=== PATIENT | female | born 1995 | race Two or more races ===

== ENCOUNTER 2018-10-09 10:11 | Emergency (ER) | payer BC ==
[~2018-10-09] VITALS: Ht 154.9 cm; Wt 63.5 kg
--- NOTE | 2018-10-09 10:33 | PHYS DOC ---
Adult General Chief Complaint Chief Complaint: VAGINAL BLEEDING HPI HPI Patient is a 23 year old female who presents with several weeks with the last period being in August 21. Patient states she does have an OB appointment with the [facility] centers on October 25. Patient states yesterday and today she had some spotting but only noticed with wiping knot in her underwear. Patient states she has no pain. 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 Patient denies any vaginal discharge or sexual transmitted disease concerns. Review of Systems Review of Systems Constitutional: Denies fever or chills [] Eyes: Denies change in visual acuity, redness, or eye pain [] HENT: Denies nasal congestion or sore throat [] Respiratory: Denies cough or shortness of breath [] Cardiovascular: No additional information not addressed in HPI [] GI: Denies abdominal pain, nausea, vomiting, bloody stools or diarrhea [] : Vaginal bleeding. Denies dysuria or hematuria [] Musculoskeletal: Denies back pain or joint pain [] Integument: Denies rash or skin lesions [] Neurologic: Denies headache, focal weakness or sensory changes [] Endocrine: Denies polyuria or polydipsia [] All other systems were reviewed and found to be within normal limits, except as documented in this note. Allergies Allergies Allergies Coded Allergies Type Severity Reaction Last Updated Verified No Known Drug Allergies 10/09/18 No Physical Exam Physical Exam Constitutional: Well developed, well nourished, no acute distress, non-toxic appearance. [] HENT: Normocephalic, atraumatic, bilateral external ears normal, oropharynx moist, no oral exudates, nose normal. [] Eyes: PERRLA, EOMI, conjunctiva normal, no discharge. [] Neck: Normal range of motion, no tenderness, supple, no stridor. [] Cardiovascular:Heart rate regular rhythm, no murmur [] Lungs & Thorax: Bilateral breath sounds clear to auscultation [] Abdomen: Bowel sounds normal, soft, no tenderness, no masses, no pulsatile masses. [] Skin: Warm, dry, no erythema, no rash. [] Back: No tenderness, no CVA tenderness. [] Extremities: No tenderness, no cyanosis, no clubbing, ROM intact, no edema. [] Neurologic: Alert and oriented X 3, normal motor function, normal sensory function, no focal deficits noted. [] Psychologic: Affect normal, judgement normal, mood normal. Normal physical exam.[] Current Patient Data Vital Signs Vital Signs Date Time Temp Pulse Resp B/P (MAP) Pulse Ox O2 Delivery O2 Flow Rate FiO2 10/09/18 11:58 80 16 115/57 (76) 100 Room Air 10/09/18 10:25 98.6 98.6 Lab Values Laboratory Tests Test 10/09/18 10:17 10/09/18 10:23 10/09/18 11:40 Urine Collection Type Unknown Urine Color Yellow Urine Clarity Clear Urine pH 8.0 Urine Specific [place] 1.020 Urine Protein Negative mg/dL (NEG-TRACE) Urine Glucose (UA) Negative mg/dL (NEG) Urine Ketones (Stick) Negative mg/dL (NEG) Urine Blood Negative (NEG) Urine Nitrite Negative (NEG) Urine Bilirubin Negative (NEG) Urine Urobilinogen Dipstick 1.0 mg/dL (0.2 mg/dL) Urine Leukocyte Esterase Negative (NEG) Urine RBC 3-5 /HPF (0-2) Urine WBC 1-4 /HPF (0-4) Urine Squamous Epithelial Cells Mod /LPF Urine Bacteria Few /HPF (0-FEW) Urine Mucus Mod /LPF Urine Opiates Screen Neg (NEG) Urine Methadone Screen Neg (NEG) Urine Barbiturates Neg (NEG) Urine Phencyclidine Screen Neg (NEG) Urine Amphetamine/Methamphetamine Neg (NEG) Urine Benzodiazepines Screen Neg (NEG) Urine Cocaine Screen Neg (NEG) Urine Cannabinoids Screen Neg (NEG) Urine Ethyl Alcohol Neg (NEG) POC Urine HCG, Qualitative Hcg positive (Negative) White Blood Count 6.6 x10^3/uL (4.0-11.0) Red Blood Count 4.39 x10^6/uL (3.50-5.40) Hemoglobin 14.0 g/dL (12.0-15.5) Hematocrit 41.2 % (36.0-47.0) Mean Corpuscular Volume 94 fL (79-100) Mean Corpuscular Hemoglobin 32 pg (25-35) Mean Corpuscular Hemoglobin Concent 34 g/dL (31-37) Red Cell Distribution Width 12.2 % (11.5-14.5) Platelet Count 312 x10^3/uL (140-400) Neutrophils (%) (Auto) 68 % (31-73) Lymphocytes (%) (Auto) 22 % (24-48) L Monocytes (%) (Auto) 6 % (0-9) Eosinophils (%) (Auto) 3 % (0-3) Basophils (%) (Auto) 1 % (0-3) Neutrophils # (Auto) 4.5 x10^3/uL (1.8-7.7) Lymphocytes # (Auto) 1.4 x10^3/uL (1.0-4.8) Monocytes # (Auto) 0.4 x10^3/uL (0.0-1.1) Eosinophils # (Auto) 0.2 x10^3/uL (0.0-0.7) Basophils # (Auto) 0.1 x10^3/uL (0.0-0.2) Maternal Serum HCG Beta Subunit 432 mIU/mL (0-5) H Sodium Level 139 mmol/L (136-145) Potassium Level 4.2 mmol/L (3.5-5.1) Chloride Level 101 mmol/L (98-107) Carbon Dioxide Level 26 mmol/L (21-32) Anion Gap 12 (6-14) Blood Urea Nitrogen 6 mg/dL (7-20) L Creatinine 0.7 mg/dL (0.6-1.0) Estimated GFR (Cockcroft-Gault) 102.8 BUN/Creatinine Ratio 9 (6-20) Glucose Level 87 mg/dL (70-99) Calcium Level 9.3 mg/dL (8.5-10.1) Total Bilirubin 0.5 mg/dL (0.2-1.0) Aspartate Amino Transferase (AST) 12 U/L (15-37) L Alanine Aminotransferase (ALT) 10 U/L (14-59) L Alkaline Phosphatase 64 U/L (46-116) Total Protein 7.8 g/dL (6.4-8.2) Albumin 4.3 g/dL (3.4-5.0) Albumin/Globulin Ratio 1.2 (1.0-1.7) Laboratory Tests 10/09/18 11:40 Laboratory Tests 10/09/18 11:40 Microbiology 10/09/18 Wet Prep - Final, Complete EKG EKG [] Radiology/Procedures Radiology/Procedures [] Impressions: [facility] [address] [place] [address] IMAGING REPORT Signed PATIENT: BURKE BUCIOACCOUNT: [id number] : 1995 LOCATION: ER AGE: 23 SEX: F EXAM STATUS: REG ER ORD. PHYSICIAN: LEIGHA VEGA APRN REASON: VAGINAL BLEEDING, 7wks preg, WAITING ON HCG PROCEDURE: OB <14 WKS W/TV OB <14 WKS W/TV History: Vaginal bleeding, Comparison: None. Findings: Multiple transabdominal sonographic images of the pelvis are submitted. Uterus measured 9.4 x 3.3 x 5.9 cm. Right ovary is visualized with normal low resistance vascularity color flow, left ovary not seen. There is trace free fluid in the posterior cul-de-sac. Transvaginal ultrasound: Multiple transvaginal sonographic images of the pelvis are submitted. Left ovary measured 2.8 x 1.7 x 2.5 cm with normal low resistance vascularity, a few follicles present near the periphery. Right ovary measured 4.3 x 2.9 x 2.5 cm. There is a focus of different echogenicity which is partially hypoechoic of the right ovary up to 1.7 x 1.8 by 1.9 cm in size. There is normal low resistance vascularity and color flow of the right ovary. Uterus measured 7.2 x 3.9 cm. Endometrium is thickened about 2 cm, no discrete intrauterine gestational sac identified. There is mild nonspecific complex appearing free fluid in the cul-de-sac, also some free fluid extending about the adnexal regions bilaterally. Impression: 1. No intrauterine gestational sac is demonstrated at this time, thickening of the endometrium. There is mild nonspecific complex appearing free fluid in the posterior cul-de-sac and also extending about the adnexal regions bilaterally. There is a focus of different echogenicity of the right ovary although this may be a corpus luteal cyst. Ectopic is not excluded at this point in time for which correlation with serial quantitative beta hCG values and short-term imaging follow-up if needed recommended. Electronically signed by: Jarrod Voss MD (10/09/2018 12:30 PM) [facility] DICTATED and SIGNED BY: JARROD VOSS MD DATE: 10/09/18 1230 Course & Med Decision Making Course & Med Decision Making Patient is a 23 year old female who presents with several weeks with the last period being in August 21. Patient states she does have an OB appointment with the [facility] on October 25. Patient states yesterday and today she had some spotting but only noticed with wiping knot in her underwear. Patient states she has no pain. 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 Patient denies any vaginal discharge or sexual transmitted disease concerns. Alert and oriented. Ambulatory with a stable gait. Abdomen is soft and nontender. Lungs are clear to auscultation lobes. Afebrile. Vital signs are within normal limits. No extremity edema. Denies recent illness, abdominal pain, vomiting, diarrhea, dizziness, chest pain, shortness of air. Ultrasound does not demonstrate a gestational sac at this time. Patient will get another ultrasound when she goes to the doctor on October 25 as planned. Patient has no abdominal pain. Urinalysis does not show infection. Bloodwork unremarkable. Patient is B+. Patient to follow-up at her scheduled OB appointment. Wet prep shows clue cells. Patient refusing any prophylactic treatment for sexually transmitted diseases at this time. Patient is told that the results to come back in 48 hours and if they are positive for chlamydia or gonorrhea she will be called. Pelvic Exam: [employer] present Abdomen: Nontender External Genitalia: Normal Skin Speculum: Normal vaginal mucosa, bloody cervical discharge, cervical os closed Bimanual: No adnexal masses or tenderness, No CMT Dragon Disclaimer Dragon Disclaimer This electronic medical record was generated, in whole or in part, using a voice recognition dictation system. Departure Departure Impression: Primary Impression: Vaginal bleeding affecting early Disposition: 01 HOME, SELF-CARE Condition: STABLE Patient Instructions: Vaginal Bleeding During , First Trimester Additional Instructions: Follow-up with OB as scheduled. Drink plenty of fluids. Take Tylenol for any kind of pain. Scripts Metronidazole (METRONIDAZOLE) 500 Mg Tablet 1 TAB PO BID, #14 TAB Prov: LEIGHA VEGA APRN 10/09/18 LEIGHA VEGA APRN Oct 09, 2018 10:33
[2018-10-09 10:57] LABS: BILIRUBIN,URINE NEGATIVE (NEG); CLARITY,URINE CLEAR; COLOR,URINE YELLOW; NITRITE,URINE NEGATIVE (NEG); PROTEIN,URINE NEGATIVE (NEG-TRACE)
[2018-10-09 11:04] LABS: BARBITURATES NEG (NEG); BENZODIAZEPINES NEG (NEG); CANNABINOIDS NEG (NEG); COCAINE NEG (NEG); METHADONE NEG (NEG); OPIATES NEG (NEG); PHENCYCLIDINE NEG (NEG)
[2018-10-09 11:05] LABS: AMPHETAMINE/METHAMPHETAMINE NEG (NEG); SQUAMOUS EPITHELIAL CELL,UR MOD /LPF
[2018-10-09 11:06] LABS: BACTERIA,URINE FEW /HPF (0-FEW)
[2018-10-09 11:52] LABS: BASO # 0.1 x10^3/uL (0.0-0.2); BASO % 1 % (0-3); EOS # 0.2 x10^3/uL (0.0-0.7); EOS % 3 % (0-3); HEMATOCRIT 41.2 % (36.0-47.0); LYMPH # 1.4 x10^3/uL (1.0-4.8); LYMPH % 22 % (24-48); MEAN CORPUSCULAR HEMOGLOBIN 32 pg (25-35); MEAN CORPUSCULAR HGB CONC 34 g/dL (31-37); MEAN CORPUSCULAR VOLUME 94 fL (79-100); MONO # 0.4 x10^3/uL (0.0-1.1); MONO % 6 % (0-9); NEUT # 4.5 x10^3/uL (1.8-7.7); NEUT % 68 % (31-73); PLATELET COUNT 312 x10^3/uL (140-400); RED BLOOD COUNT 4.39 x10^6/uL (3.50-5.40); RED CELL DISTRIBUTION WIDTH 12.2 % (11.5-14.5); WHITE BLOOD COUNT 6.6 x10^3/uL (4.0-11.0)
[2018-10-09 12:00] LABS: CALCIUM 9.3 mg/dL (8.5-10.1); CREATININE 0.7 mg/dL (0.6-1.0); GFR 102.8; POTASSIUM 4.2 mmol/L (3.5-5.1)
[2018-10-09 12:06] LABS: ALBUMIN 4.3 g/dL (3.4-5.0); ALBUMIN/GLOBULIN RATIO 1.2 (1.0-1.7); TOTAL BILIRUBIN 0.5 mg/dL (0.2-1.0); TOTAL PROTEIN 7.8 g/dL (6.4-8.2)
--- NOTE | 2018-10-09 12:33 | RAD ---
OB <14 WKS W/TV History: Vaginal bleeding, Comparison: None. Findings: Multiple transabdominal sonographic images of the pelvis are submitted. Uterus measured 9.4 x 3.3 x 5.9 cm. Right ovary is visualized with normal low resistance vascularity color flow, left ovary not seen. There is trace free fluid in the posterior cul-de-sac. Transvaginal ultrasound: Multiple transvaginal sonographic images of the pelvis are submitted. Left ovary measured 2.8 x 1.7 x 2.5 cm with normal low resistance vascularity, a few follicles present near the periphery. Right ovary measured 4.3 x 2.9 x 2.5 cm. There is a focus of different echogenicity which is partially hypoechoic of the right ovary up to 1.7 x 1.8 by 1.9 cm in size. There is normal low resistance vascularity and color flow of the right ovary. Uterus measured 7.2 x 3.9 cm. Endometrium is thickened about 2 cm, no discrete intrauterine gestational sac identified. There is mild nonspecific complex appearing free fluid in the cul-de-sac, also some free fluid extending about the adnexal regions bilaterally. Impression: 1. No intrauterine gestational sac is demonstrated at this time, thickening of the endometrium. There is mild nonspecific complex appearing free fluid in the posterior cul-de-sac and also extending about the adnexal regions bilaterally. There is a focus of different echogenicity of the right ovary although this may be a corpus luteal cyst. Ectopic is not excluded at this point in time for which correlation with serial quantitative beta hCG values and short-term imaging follow-up if needed recommended. Electronically signed by: Jarrod Castellon MD (10/09/2018 12:30 PM) [facility]
[2018-10-09] MEDS ORDERED: METR-34 PO (12:48)
[2018-10-09 13:13] VITALS: BP 125/57
[2018-10-11 19:09] LABS: GC PROBE Negative (Negative)
== END 2018-10-09 12:53 | disposition home or self-care (01) ==
LOC: ER 10:11
DX: O20.8 Other hemorrhage in early pregnancy (principal); Z3A.00 Weeks of gestation of pregnancy not specified
CPT/HCPCS: 36415; 76801; 76817; 80053; 80307; 81001; 81025; 84702; 85025; 86850; 86900; 86901; 87491; 87591; 99285; Q0111